=== PATIENT | male | born 1990 | race Caucasian/White ===

== ENCOUNTER 2019-06-17 19:10 | Emergency (ER) | payer SELFPAY ==
[2019-06-17 19:11] VITALS: BP 124/84; PULSE 101; RESP 19; TEMP 36.9; O2SAT 98; BMI 24.1
--- NOTE | 2019-06-17 19:26 | ED.DCSUM_ITS ---
History of Present Illness Chief Complaint: Abscess Informant: Patient Onset: Yesterday Context: Sudden Onset Timing: Continuous Quality: Pain Location: Right lower teeth Current Severity: Mild Maximum Severity: Severe Worsened by: Liquid Relieved by: - - Nothing relieves the pain Associated Symptoms: Jaw Swelling, Cold Narrative: Patient is a 29-year-old male presents with 2 complaints. First complaint is dental pain and swelling of his jaw on the right side. He also complains of decreased hearing after using a Q-tip. Patient denies fever, chills night sweats. Denies a traumatic fever, murmur, SBE, IV drug use or being immune suppressed. Patient states he has the papers on prescription. Does not have a dentist. Prior similar symptoms: No Recent Illness/Hospitalization: No - Past Medical History (1) No significant past medical history Status: Acute Past Medical History - Allergies and Home Meds Allergies/Adverse Reactions: Allergies No Known Allergies Allergy (Verified 06/17/19 19:13) Primary Care Physician: Care Physician,No Primary [Primary Care Provider] - Prior records reviewed: No Past Medical History: None Surgical History: no surgical history Lives: Alone Smoking Status: Current every day smoker Alcohol: Rare Drugs: None Review of Systems General: Denies: Chills, Fever, Malaise, Subjective, Sweats, Weight loss, - Eyes: Denies: Visual changes - bilaterally, Blurred Vision - bilaterally ENT: Reports: - - Decreased hearing bilateral. Denies: Bilateral ear pain, Rhinorrhea, Sore throat Gastrointestinal: Denies: Nausea, Vomiting Musculoskeletal: Denies: Myalgias, Arthralgias, Neck pain, Back pain, Swelling, Extremity Pain Skin: Reports: Abscess. Denies: Rash, Abrasions, Wounds Neurological: Denies: Headache, Weakness, Parasthesia, Numbness Hematologic: Denies: Easy bruising, Easy bleeding Allergy: Denies: Uticaria, Swelling of the mouth, Swelling of the tongue Physical Exam Vital Signs/Narrative: Vital Signs Temp Pulse Resp BP Pulse Ox 06/17/19 19:11 98.4 F 101 H 19 H 124/84 H 98 Inital Vital Signs reviewed: Yes General: Well nourished, Well developed, Unkempt Head: Normocephalic, Atraumatic ENT: Moist mucous membranes, Nasal congestion, No nasal trauma, No rhinorrhea, Sinus tenderness, - - Unable to see right or left TM secondary to cerumen impaction Mouth/Throat: Normal oral mucosa, Normal posterior oropharynx, No sublingual edema, Normal Stensen's duct, Apthous ulcer, Dental abscess, Focal dental decay, Focal gum swelling, Gingivitis, Tenderness on tooth percussion, Widespread dental decay. Negative for: Normal inspection lips/gums, No dental tenderness, No focal abscess, Dental trauma, Dental avulsion, Dentral fracture, Filling loss, Trismus Neck: Supple, No lymphadenopathy, Nontender, No JVD, Soft tissue swelling. Negative for: Anterior submandibular lymphadenopathy, Posterior submandibular lymphadenopathy, Anterior submental lymphadenopathy, Posterior submental lymphadenopathy, Submandibular soft tissue swelling, Submental soft tissue swelling, Parotid tenderness Cardiovascular: Regular rate, Regular rhythm, No murmurs, Normal S1, Normal S2 Respiratory: No distress, CTA bilaterally, Chest nontender Extremities: Nontender, No edema Skin: Normal color, No rash, - - There is no evidence of facial cellulitis Neurological: Alert, Oriented x3, Cranial nerves II-XII grossly intact, Normal Strength, Normal Sensation Psychological: Normal affect Diagnostic/Tx/Re-eval - Medical Decision Making Vision with extensive dental decay. There is evidence of dental abscess. There is nothing that is amenable to incision and drainage. Since patient is self-pay he was prescribed [place] and penicillin. He was informed to purchase ibuprofen and Debrox to clean his ears out. He was instructed not to use a Q-tip since the Q-tip pack the wax. ED Disposition - Plan for ED Patient: Disposition: Home or Assisted Living Diagnosis: Dental abscess, Dental caries extending into dentine, Dental caries, Periodontal disease, unspecified, Gingivitis Instructions: Dental Abscess, CERUMEN IMPACTION, Home Care Prescriptions: Hydrocodone Bitart/Apap 5-325 [[place] 5MG-325MG] 1 tablet PO Q6H PRN PRN 3 Days #10 tablet PRN Reason: Pain Transmission Status: Sent to [facility] Penicillin V Potassium 500 mg PO 4X/DAY #40 tab Transmission Status: Pending to [facility] Referrals: Care Physician,No Primary [Primary Care Provider] - Glenny Sanders [NON-STAFF] - As soon as possible Additional Instructions: 1. Take medication as instructed until gone. 2. Take in addition either 4 Advil every 8 hours or 2 Aleve every 12 hours for pain 3. Recommend Debrox to help remove the wax from your ear. 4. Your prescription was electronically transmitted to [facility]
[2019-06-17] MEDS: Naproxen 250 MG Tablet 500 MG PO (19:50)
[2019-06-17] MEDS: HYDROcodone Bitartrate/Apap 5/325 Tablet PO (19:50)
[2019-06-17] MEDS: Penicillin Vk 250 MG Tablet 500 MG PO (19:50)
== END 2019-06-17 20:03 | disposition home or self-care (01) ==
LOC: ED 19:41
PROVIDERS: Emergency Provider Emergency Medicine
DX: K04.7 Periapical abscess without sinus (principal); K05.10 Chronic gingivitis, plaque induced; K05.6 Periodontal disease, unspecified; K02.9 Dental caries, unspecified; F17.200 Nicotine dependence, unspecified, uncomplicated
CPT/HCPCS: 99283

== ENCOUNTER 2020-10-06 16:12 | Emergency (ER) | payer SELFPAY ==
[2020-10-06 16:13] VITALS: BP 115/68; PULSE 83; RESP 18; TEMP 36.9; O2SAT 99; BMI 26.7
--- NOTE | 2020-10-06 17:04 | ED.VIS.GEN ---
History of Present Illness Chief Complaint: Cold Sx Informant: Patient Narrative: 30-year-old male presenting with concern for Covid?19 infection. He states that he lost his sense of taste 2 days ago. He states his throat is a little sore and he has a runny/stuffy nose. He states he had a temperature of 100 degrees last evening. He admits to having body aches. He is not having chest pain, palpitations, shortness of breath, nausea, vomiting, diarrhea. 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 He states that he wants to get tested for Covid?19 so that he can have his kids this weekend - Past Medical History (1) No significant past medical history Status: Chronic Past Medical History - Allergies and Home Meds Allergies/Adverse Reactions: Allergies No Known Allergies Allergy (Verified 10/06/20 17:04) Primary Care Physician: Care Physician,No Primary [Primary Care Provider] - Prior records reviewed: Yes Past Medical History: None Surgical History: no surgical history Lives: Alone Smoking Status: Current every day smoker Alcohol: None Drugs: None Review of Systems General: Reports: Chills, Fever. Denies: Malaise Eyes: Reports: -. Denies: Visual changes - bilaterally, Diplopia ENT: Reports: Rhinorrhea, Sore throat, - - Loss of taste, nasal congestion Cardiovascular: Denies: Chest pain, Palpitations Respiratory: Reports: Cough. Denies: Dyspnea, Sputum, Dyspnea on exertion Gastrointestinal: Denies: Abdominal pain, Nausea, Vomiting Genitourinary: Denies: Dysuria, Hematuria Musculoskeletal: Reports: Myalgias. Denies: Arthralgias Skin: Denies: Rash, Abscess Neurological: Reports: Headache. Denies: Weakness, Parasthesia, Numbness Physical Exam Vital Signs/Narrative: Vital Signs Temp Pulse Resp BP Pulse Ox 10/06/20 16:13 98.4 F 83 18 115/68 99 Inital Vital Signs reviewed: Yes General: Well nourished, Well developed, No Acute Distress Head: Normocephalic, Atraumatic Eyes: Perrl, EOMI ENT: Moist mucous membranes, Nasal congestion Cardiovascular: Regular rate, Regular rhythm Respiratory: No distress, CTA bilaterally Skin: Normal color, No rash. Negative for: Cyanosis, Diaphoresis Neurological: Alert, Oriented x3 Psychological: Normal affect, Normal Mood Diagnostic/Tx/Re-eval - Medical Decision Making 30-year-old male presenting with concern for Covid?19 infection. He states he has mild symptoms of nasal congestion, cough, low-grade fever, loss of taste. I do not believe given that he has normal vital signs and mild symptoms that he needs imaging or lab work. He stated that he wanted to get tested for Covid?19 so that he could see his kids this weekend. I counseled him that he should not see them given his symptoms and he should quarantine. Patient acknowledges understanding and requests a work note so that he can quarantine at home. He will be tested for Covid?19. He is given return precautions. Impression: 1. Viral syndrome ED Disposition - Plan for ED Patient: Disposition: Home or Assisted Living Instructions: Coronavirus Disease 2019 (COVID-19): Caring for Yourself or Others, Preventing the Spread of Infection Understanding Isolation Procedures, Coronavirus Disease 2019 (COVID-19): Overview Referrals: Care Physician,No Primary [Primary Care Provider] -
[2020-10-06 17:13] VITALS: PULSE 79; RESP 16
--- NOTE | 2020-10-06 17:14 | ED.RN ---
THIS NURSE REVIEWED D/C INSTRUCTIONS WITH PT. PT VERBALIZED UNDERSTANDING OF INSTRUCTIONS. PT DENIES FURTHER NEEDS OR QUESTIONS AT THIS TIME
== END 2020-10-06 17:13 | disposition home or self-care (01) ==
PROVIDERS: Emergency Provider Student in an Organized Health Care Education/Training Program
DX: B34.9 Viral infection, unspecified (principal); F17.200 Nicotine dependence, unspecified, uncomplicated
CPT/HCPCS: 87635; 99282; U0003

== ENCOUNTER 2023-01-31 14:44 | Emergency (ER) | payer SELFPAY ==
[2023-01-31 14:45] VITALS: BP 108/79; PULSE 99; RESP 18; TEMP 36.2; O2SAT 99; BMI 26.0
[2023-01-31 18:44] VITALS: BP 115/78; PULSE 78; RESP 16; O2SAT 100
--- NOTE | 2023-01-31 19:01 | EX.ED.DYSGE1 ---
HPI History of Present Illness Chief Complaint: Lower Extremity Injury Informant: patient Onset/Context/Timing Onset: Days (3) Context: Gradual Onset Timing: Continuous Quality: Aching Location: Bilateral thighs Worsened by: Nothing Relieved by: Nothing Narrative Narrative: Patient presents with bilateral thigh pain that has been getting worse over the past 3 days. Patient states he has had some diarrhea over this time. Patient states it is watery. Patient denies any melena or hematochezia. Patient denies any nausea or vomiting. Patient denies any abdominal pain. Patient states his pain feels like it is aching. Patient states that his in both thighs. Patient denies any calf pain. Patient states nothing makes it better nothing makes it worse. Patient admits to occasional tingling into his feet. Patient denies any trauma or injury. PFSH PFSH Medical History no medical history no medical history Allergy/AdvReac Type Severity Reaction Status Date / Time No Known Allergies Allergy Verified 01/31/23 14:47 Surgical History no surgical history no surgical history Social History Smoking Status: Current every day smoker tobacco type: cigarettes ROS ROS ED Constitutional Constitutional ED: Denies chills or fever(s) Eyes Eyes: Denies blurry vision or change in vision ENT ENT ED: Denies rhinorrhea or sore throat Cardiovascular Cardiovascular: Denies chest pain or palpitations Respiratory/Chest Respiratory/Chest: Denies cough or dyspnea Gastrointestinal Gastrointestinal: Reports diarrhea; Denies nausea or vomiting Genitourinary Genitourinary ED: Denies dysuria or hematuria Musculoskeletal Musculoskeletal: Reports back pain, myalgias and neck pain Integumentary Denies abscess or rash Neurologic Neurologic: Denies headache(s) or weakness Allergic/Immunologic Allergic/Immunologic ED: Denies mouth swelling or urticaria EXAM Physical Exam Const Vital Signs: 01/31/23 14:45 01/31/23 18:44 Temperature 97.1 F L Temperature Source Temporal Pulse Rate 99 78 Respiratory Rate 18 16 Blood Pressure 108/79 115/78 Blood Pressure Mean 88 90 Pulse Ox 99 100 Oxygen Delivery Method Room Air Room Air Positive well nourished, well developed and unkempt General Appearance ED: unkempt, well developed and NAD HEENT Reports moist mucous membranes Neck supple and no JVD Resp normal respiratory effort and clear to auscultation bilaterally Cardio regular rate, regular rhythm and no murmurs GI normal to inspection, nondistended, normoactive bowel sounds and non-tender Palpation: soft Extremity normal to inspection Extremity Narrative: There is mild tenderness to the thighs bilaterally. There is no edema. There is no bony crepitance or step-off. There is good range of motion. Pedal pulses are equal bilaterally. Sensation was intact to light touch bilaterally in the lower extremities. Strength is 5/5 bilaterally in the lower extremities. General Extremety ED: Yes tenderness; Negative for edema General Extremity: Negative for edema Neuro oriented x3, CN's II-XII intact bilaterally and no sensory deficits noted Sensorium / Orientation: alert Motor Exam: strength 5/5 throughout Psych mental status grossly normal Appearance: unkempt Skin no rashes or lesions noted MDM MDM MDM Narrative Medical decision making narrative: Differential diagnosis includes dehydration, myalgias, and electrolyte abnormality. CBC will be obtained to assess for anemia and leukocytosis. Comprehensive metabolic profile will be obtained to assess for electrolyte abnormality, renal function, and hepatic function. Total CPK will be obtained to assess for muscle breakdown. Lab Data Lab results narrative: CBC was reviewed. There is a slight leukocytosis of 11.9. The remainder was within normal limits. Comprehensive metabolic profile was reviewed and was within normal limits. Total CK was reviewed and was normal at 102. Labs: Laboratory Results - last 24 hr 01/31/23 01/31/23 19:15 19:15 WBC 11.9 H RBC 5.26 Hgb 15.1 Hct 47.1 MCV 89.5 MCH 28.7 MCHC 32.1 RDW Std Deviation 44.0 H RDW Coeff of Durga 13.4 Plt Count 283 MPV 10.5 Immature Gran % (Auto) 0.300 Neut % (Auto) 80.1 H Lymph % (Auto) 11.2 L Prentiss % (Auto) 7.8 Eos % (Auto) 0.3 Baso % (Auto) 0.3 Absolute Neuts (auto) 9.5 H Absolute Lymphs (auto) 1.33 Nucleated RBC % 0 Sodium 139 Potassium 4.0 Chloride 107 Carbon Dioxide 27.0 Anion Gap 5 BUN 16 Creatinine 1.05 Estim Creat Clear Calc 92.68 Est GFR (MDRD) Af Amer 104 Est GFR (MDRD) Non-Af 86 BUN/Creatinine Ratio 15.2 Glucose 93 Calcium 8.0 L Total Bilirubin 0.30 AST 21 ALT 19 Alkaline Phosphatase 87 Total Creatine Kinase 102 Total Protein 6.9 Albumin 3.6 Globulin 3.3 Albumin/Globulin Ratio 1.1 Treatment and Re-Evaluation :: Patient was given IV fluids. Patient is feeling better on reevaluation. Patient was advised of his findings. Patient was instructed to drink plenty of fluids. Patient was instructed to follow-up with his primary care physician in 5 to 7 days. Patient understood and was agreeable with the plan. All questions were answered. Discharge Plan Triage Chief Complaint: Lower Extremity Injury ED Provider: Judson Barriga Dx/Rx/DC Orders Clinical Impression: Myalgia, Diarrhea Instructions: ED Myalgias, ED Myofascial Pain Syndrome Primary Care Provider: Care Physician,No Primary Referrals: Glenny Sanders [Non-Staff] - 5-7 Days Care Physician,No Primary [Primary Care Provider] - Disposition Disposition: Home, Self Care
[2023-01-31] MEDS: 0.9% Normal Saline 1,000 ML 1000 ML IV (19:19)
[2023-01-31 19:23] LABS: Absolute Lymphocyte Count 1.33 X10^3/uL (0.83-4.51); Absolute Neutrophil Count 9.5 X10^3/uL (2.0-7.7); Basophil# 0.04 X10^3/uL; Basophil% 0.3 % (0-1); Eosinophil# 0.04 X10^3/uL; Eosinophils% 0.3 % (0-5); Hematocrit 47.1 % (40-54); Hemoglobin 15.1 g/dL (13.0-16.5); Lymphocyte # 1.33 X10^3/ul (0.83-4.51); Lymphocyte % 11.2 % (19-41); Mean Corp Hgb Conc 32.1 g/dL (32-36); Mean Corpuscular Hgb 28.7 pg (27.0-32.0); Mean Corpuscular Volume 89.5 fL (80-94); Mean Platelet Vol. 10.5 fl (6.2-12.0); Monocyte# 0.93 X10^3/uL; Monocyte% 7.8 % (0-10); NRBC Flagged by Analyzer 0 % (0-5); Neutrophil # 9.47 X10^3/uL (2.7-7.7); Neutrophil % 80.1 % (47-70); Platelet Count 283 K/mm3 (150-450); RBC Distribution Width CV 13.4 % (11.6-14.6); Red Blood Count 5.26 M/mm3 (4.6-6.2); White Blood Count 11.9 K/mm3 (4.4-11.0)
[2023-01-31 19:45] LABS: ALB/GLOB Ratio 1.1 RATIO (0.9-2.4); AST(SGOT) 21 U/L (15-37); Alanine Aminotransfer ALT/SGPT 19 U/L (16-61); Albumin, Serum 3.6 g/dL (3.2-5.0); Alkaline Phosphatase 87 U/L (45-117); Anion Gap 5 (5-15); BUN 16 mg/dL (7-18); BUN/Creat Ratio 15.2 RATIO (10-20); CPK Total, Creatine Kinase 102 U/L (39-308); Chloride 107 mmol/L (98-107); Creatinine, Serum 1.05 mg/dL (0.70-1.30); EST Glomerular Filtration Rate 86 mL/min (>60); Est Glom Filt Rate - Afr Amer 104 mL/min (>60); Estimated Creatinine Clearance 92.68 ml/min; Globulin 3.3 g/dL (2.2-4.2); Glucose 93 mg/dL (74-106); Protein, Total 6.9 g/dL (6.4-8.2); Sodium Level 139 mmol/L (136-145)
== END 2023-01-31 20:54 | disposition home or self-care (01) ==
PROVIDERS: Emergency Provider Emergency Medicine; Visit Provider Emergency Medicine
DX: M79.10 Myalgia, unspecified site (principal); R19.7 Diarrhea, unspecified; F17.210 Nicotine dependence, cigarettes, uncomplicated
CPT/HCPCS: 80053; 82550; 85025; 96360; 99282; J7030

== ENCOUNTER 2024-09-01 15:22 | Emergency (ER) | payer MEDICAID, SELFPAY ==
[2024-09-01 15:23] VITALS: BP 125/94; PULSE 137; RESP 16; TEMP 36.8; O2SAT 95; BMI 24.5
--- NOTE | 2024-09-01 15:31 | EDS_ITS ---
HPI History of Present Illness Chief Complaint: Dental Informant: patient Onset/Context/Timing Onset: Days (2) Context: Gradual Onset Timing: Continuous Quality: Dull Location: Left upper premolar Worsened by: Nothing Relieved by: - (Nothing) Associated Symptoms Assocated Symptom - Dental: jaw swelling and face swelling; Negative for fever, cold sensitivity or hot sensitivity Narrative Narrative: Patient presents with dental pain that has been getting worse over the past 2 days. Patient noted some swelling to his left upper cheek over the past 2 days. Patient describes his pain as dull. Patient states nothing makes it worse and nothing makes it better. Patient denies any fevers or chills. Patient denies any sensitivity to hot or cold. Patient has not made and appointment with a dentist yet. Patient denies any sore throat. Patient admits to some rhinorrhea. PFSH PFSH Medical History no medical history no medical history Home Medications ?Medication ?Instructions ?Recorded ?Last Taken ?Type NK 09/01/24 Unknown History naproxen 500 mg tablet (Naprosyn) 500 mg PO BID PRN pain #20 tabs 09/01/24 Unknown Rx penicillin V potassium 500 mg 500 mg PO 4X/DAY #40 tabs 09/01/24 Unknown Rx tablet Allergy/AdvReac Type Severity Reaction Status Date / Time No Known Allergies Allergy Verified 01/31/23 14:47 Surgical History no surgical history no surgical history Social History Smoking Status: Heavy Smoker (>10/day) ROS ROS ED Constitutional Constitutional ED: Denies chills or fever(s) Eyes Eyes: Denies blurry vision or change in vision ENT ENT ED: Reports rhinorrhea; Denies sore throat Cardiovascular Cardiovascular: Denies chest pain or palpitations Respiratory/Chest Respiratory/Chest: Denies cough or dyspnea Gastrointestinal Gastrointestinal: Denies nausea or vomiting Genitourinary Genitourinary ED: Denies dysuria or hematuria Musculoskeletal Musculoskeletal: Denies back pain or neck pain Integumentary Denies abscess or rash Neurologic Neurologic: Denies headache(s) or weakness Allergic/Immunologic Allergic/Immunologic ED: Denies mouth swelling or urticaria EXAM Physical Exam Const Vital Signs: 09/01/24 15:23 Temperature 98.2 F Temperature Source Temporal Pulse Rate 137 H Respiratory Rate 16 Blood Pressure 125/94 H Blood Pressure Mean 104 Pulse Ox 95 Positive well nourished and well developed General Appearance ED: well developed and NAD HEENT HEENT Narrative: There are multiple dental caries noted. There is a large dental carry noted over the left upper second premolar. There is some mild gingival edema around this tooth. There is no fluctuance. There is no evidence of any abscess. Oropharynx is clear. Airway is patent. There is no sublingual edema or evidence of Ulises's angina. Teeth and Gingiva: abnormal tooth and associated gingiva Positive for tenderness and associated gingival edema, caries and poor dentition Eyes PERRL and EOMs intact bilaterally Neck supple and no JVD General: Negative for anterior neck swelling, tenderness or submandibular swelling Neuro oriented x3, CN's II-XII intact bilaterally, moves all extremities, no focal motor deficits and no sensory deficits noted Sensorium / Orientation: alert Motor Exam: strength 5/5 throughout Psych mental status grossly normal MDM MDM MDM Narrative Medical decision making narrative: Smoking cessation was discussed. Patient was advised that this is most likely infected dental caries. Patient was given a dose of Pen-Vee K and number excellent here. Patient was given prescription for Pen-Vee K and Naprosyn. Patient was given a dental referral list. Patient was instructed to follow-up in 5 to 7 days. Patient was instructed to return if worse in any way. Patient understood and was agreeable with the plan. All questions were answered. Discharge Plan Triage Chief Complaint: Dental ED Provider: Judson Barriga Dx/Rx/DC Orders Clinical Impression: Infected dental caries, Tobacco use disorder Instructions: ED Dental Pain, ED Dental Cavity Prescriptions: New penicillin V potassium 500 mg tablet 500 mg PO 4X/DAY Qty: 40 0RF naproxen [Naprosyn] 500 mg tablet 500 mg PO BID PRN (Reason: pain) Qty: 20 0RF No Action NK Primary Care Provider: Care Physician,No Primary Referrals: Care Physician,No Primary [Primary Care Provider] - Dentist,Your [STAFF PHYSICIAN] - 5-7 Days Print Language: Vietnamese Disposition Disposition: Home, Self Care
[2024-09-01] MEDS: Penicillin Vk 250 MG Tablet 500 MG PO (16:08)
[2024-09-01] MEDS: Naproxen 500 MG Tablet PO (16:08)
[2024-09-01 16:10] VITALS: BP 125/94; PULSE 137; RESP 16; TEMP 36.8; O2SAT 95
== END 2024-09-01 16:05 | disposition home or self-care (01) ==
LOC: ED 15:58
PROVIDERS: Emergency Provider Emergency Medicine; Referring Provider Emergency Medicine; Visit Provider Emergency Medicine
DX: K04.7 Periapical abscess without sinus (principal); K02.9 Dental caries, unspecified; F17.200 Nicotine dependence, unspecified, uncomplicated
CPT/HCPCS: 99282